=== PATIENT | female | born 1955 | race Caucasian/White ===

== ENCOUNTER 2018-03-17 06:01 | Day surgery (SDC) | payer OTHER | END 2018-03-19 08:39 | disposition home or self-care (01) | LOC: GIL 06:01 | DX: R10.9 Unspecified abdominal pain (principal); Z53.9 Procedure and treatment not carried out, unspecified reason ==

== ENCOUNTER 2018-03-17 08:18 | Inpatient (IN) | payer OTHER ==
[2018-03-17] MEDS: ONDANSETRON 4 MG INJ IV ×3 (10:08→20:59)
[2018-03-17] MEDS: KETOROLAC 30 MG INJ IV (10:08)
[2018-03-17] MEDS: SOD CHLORIDE 0.9% 1,000 ML IV ×4 (10:08→20:48)
[2018-03-17 10:30] LABS: ADD MAN DIFF? NO
[2018-03-17 10:34] LABS: ABNORMAL IP MESSAGE 1; BASOPHIL # 0.1 10^3/ul (0.0-0.1); BASOPHILS % 0.4 % (0.0-2.0); EOSINOPHILS # 0.2 10^3/ul (0.0-0.5); EOSINOPHILS % 1.3 % (0.0-7.0); HEMATOCRIT 39.2 % (37.0-47.0); HEMOGLOBIN 12.1 g/dl (12.0-16.0); LYMPHOCYTES # 1.2 10^3/ul (0.8-2.9); LYMPHOCYTES % 9.9 % (15.0-51.0); MEAN CORPUSCULAR HEMOGLOBIN 30.6 pg (29.0-33.0); MEAN CORPUSCULAR HGB CONC 30.9 g/dl (32.0-37.0); MEAN PLATELET VOLUME 12.7 fl (7.4-10.4); MONOCYTES % 8.3 % (0.0-11.0); NEUTROPHIL # 9.3 10^3/ul (1.6-7.5); NEUTROPHILS % 79.7 % (39.0-77.0); PLATELET COUNT 318 10^3/UL (140-415); RED BLOOD COUNT 3.96 10^6/ul (4.20-5.40); RED CELL DISTRIBUTION WIDTH 14.7 % (11.5-14.5)
[2018-03-17 10:34] LABS: WHITE BLOOD COUNT 11.7 10^3/ul (4.8-10.8)
[2018-03-17 10:36] LABS: POSITIVE DIFF @See below
[2018-03-17 10:52] LABS: ADD UMIC YES; ALANINE AMINOTRANSFERASE 29 IU/L (13-69); ALBUMIN 4.1 g/dl (3.3-4.9); ALBUMIN/GLOBULIN RATIO 0.97; ALKALINE PHOSPHATASE 285 IU/L (42-121); ANION GAP 17 (8-16); ASPARTATE AMINO TRANSFERASE 68 IU/L (15-46); BILIRUBIN,INDIRECT 0.2 mg/dl (0-1.1); BILIRUBIN,TOTAL 0.2 mg/dl (0.2-1.3); BLOOD UREA NITROGEN 11 mg/dl (7-20); CALCIUM 9.7 mg/dl (8.4-10.2); CARBON DIOXIDE 30 mmol/L (21-31); CHLORIDE 100 mmol/L (97-110); CREATININE 0.95 mg/dl (0.44-1.00); GLUCOSE 92 mg/dl (70-220); LIPASE 47 U/L (23-300); POTASSIUM 4.2 mmol/L (3.5-5.1); SODIUM 143 mmol/L (135-144); TOTAL PROTEIN 8.3 g/dl (6.1-8.1); UR ASCORBIC ACID NEGATIVE (NEGATIVE); UR BACTERIA FEW /HPF (NONE SEEN); UR BILIRUBIN (Dip) NEGATIVE (NEGATIVE); UR BLOOD (Dip) NEGATIVE (NEGATIVE); UR CLARITY CLOUDY (CLEAR); UR COLOR YELLOW (YELLOW); UR GLUCOSE (Dip) NEGATIVE (NEGATIVE); UR KETONES (Dip) TRACE mg/dL (NEGATIVE); UR LEUKOCYTE ESTERASE (Dip) 2+ Leu/ul (NEGATIVE); UR NITRITE (Dip) NEGATIVE (NEGATIVE); UR RBC 1 /HPF (0-5); UR SPECIFIC GRAVITY (Dip) 1.021 (1.003-1.030); UR SQUAMOUS EPITHELIAL CELL MODERATE /HPF (FEW); UR TOTAL PROTEIN (Dip) 1+ mg/dl (NEGATIVE); UR UROBILINOGEN (Dip) NEGATIVE (NEGATIVE); UR WBC 21 /HPF (0-5)
[2018-03-17] MEDS: MAGNESIUM CITRATE 300 ML BTL PO (11:28)
[2018-03-17] MEDS: CEPHALEXIN 500 MG CAP PO (11:28)
[2018-03-17] MEDS ORDERED: MAGNESIUM HYDROXIDE 30ML CUP PO (13:00)
[2018-03-17] MEDS ORDERED: NACL 0.9% 3 ML SYG IV (13:00)
[2018-03-17] MEDS ORDERED: NA PHOSPHATE/BIPHOS 133 ML ENEMA PR (13:00)
[2018-03-17 13:29] LABS: HAAIG REFLEX REFLEX FILED
[2018-03-17] MEDS ORDERED: hydrALAzine 20 MG INJ IV (14:00)
[2018-03-17 14:08] LABS: HEPATITIS B SURFACE ANTIGEN NEGATIVE (NEGATIVE)
[2018-03-17 14:25] LABS: HEPATITIS B CORE ANTIBODY REACTIVE (NEGATIVE); HEPATITIS C VIRAL ANTIBODY NEGATIVE (NEGATIVE)
[2018-03-17 14:29] LABS: HIV 1&2 ANTIBODY REACTIVE (NEGATIVE)
[2018-03-17] MEDS: NA PHOSPHATE/BIPHOS 133 ML ENEMA PR (14:30)
[2018-03-17] MEDS: LACTULOSE 30ML CUP PO (14:30)
[2018-03-17] MEDS: CEFTRIAXONE 1 GM/50 ML (PMX) 50 ML IVPB (14:30)
[2018-03-17] MEDS: DOCUSATE SODIUM 100 MG CAP PO (14:33)
[2018-03-17 14:44] LABS: LACTATE DEHYDROGENASE 2686 IU/L (313-618)
[2018-03-17] MEDS: SOD CHLORIDE 0.9% 100 ML (16:43)
[2018-03-17] MEDS: IOHEXOL 300MG/ML 150 ML BTL (16:43)
[2018-03-17] MEDS: PEG/ELECTROLYTES 4L BTL PO (16:58)
[2018-03-17] MEDS ORDERED: POTASSIUM CHLORIDE 10 MEQ in SOD CHLORIDE 0.9% 50 ML IV (17:00)
[2018-03-17] MEDS: ACETAMINOPHEN 325 MG TAB PO (20:47)
[2018-03-17] MEDS: SENNA TAB PO (20:47)
[2018-03-17] MEDS: FAMOTIDINE 20 MG INJ IV (20:47)
[2018-03-17] MEDS: ATORVASTATIN 40 MG TAB PO (20:47)
[2018-03-18] MEDS: DOCUSATE SODIUM 100 MG CAP PO ×2 (01:00→13:00)
[2018-03-18] MEDS: METOCLOPRAMIDE 10 MG INJ IV (02:06)
[2018-03-18] MEDS: LACTULOSE ENEMA 1,000 ML BTL PR (03:00)
[2018-03-18 03:27] LABS: TROPONIN-I < 0.012 ng/ml (0.00-0.12)
[2018-03-18 03:53] LABS: AMMONIA 54 umol/l (9-30)
[2018-03-18] MEDS: ACETAMINOPHEN 1000MG/100ML IV 100 ML IVPB ×3 (04:00→10:00)
[2018-03-18] MEDS: LORAZEPAM 2 MG INJ IM (05:00)
[2018-03-18 05:08] LABS: WHITE BLOOD COUNT 16.6 10^3/ul (4.8-10.8)
[2018-03-18 05:08] LABS: ABNORMAL IP MESSAGE 1; HEMATOCRIT 42.3 % (37.0-47.0); MEAN CORPUSCULAR HGB CONC 30.7 g/dl (32.0-37.0); MEAN PLATELET VOLUME 11.3 fl (7.4-10.4); PLATELET COUNT 577 10^3/UL (140-415); RED BLOOD COUNT 4.19 10^6/ul (4.20-5.40); RED CELL DISTRIBUTION WIDTH 15.2 % (11.5-14.5)
[2018-03-18 05:21] LABS: ADD MAN DIFF? YES; POSITIVE DIFF @See below
[2018-03-18] MEDS: ONDANSETRON INJ 8 MG in DEXTROSE 5% 50 ML IV ×2 (05:21→06:16)
[2018-03-18 05:34] LABS: HEMOGLOBIN A1C 5.3 % (0-5.9)
[2018-03-18 05:38] LABS: POTASSIUM 3.3 mmol/L (3.5-5.1)
[2018-03-18] MEDS: ONDANSETRON 4 MG INJ IV (05:44)
[2018-03-18 05:47] LABS: ALANINE AMINOTRANSFERASE 37 IU/L (13-69); ALBUMIN 2.7 g/dl (3.3-4.9); ALBUMIN/GLOBULIN RATIO 0.87; ALKALINE PHOSPHATASE 514 IU/L (42-121); ANION GAP 21 (8-16); ASPARTATE AMINO TRANSFERASE 93 IU/L (15-46); BILIRUBIN,TOTAL 0.3 mg/dl (0.2-1.3); BLOOD UREA NITROGEN 21 mg/dl (7-20); CALCIUM 8.7 mg/dl (8.4-10.2); CARBON DIOXIDE 20 mmol/L (21-31); CHLORIDE 107 mmol/L (97-110); CHOLESTEROL 98 mg/dl (100-200); CREATININE 1.07 mg/dl (0.44-1.00); GLUCOSE 190 mg/dl (70-220); HDL CHOLESTEROL 24 mg/dl (35-98); LDL CHOLESTEROL,CALCULATED 53 mg/dl; PHOSPHORUS 2.8 mg/dl (2.5-4.9); POTASSIUM 3.7 mmol/L (3.5-5.1); SODIUM 144 mmol/L (135-144); TOTAL PROTEIN 5.8 g/dl (6.1-8.1); TRIGLYCERIDES 103 mg/dl (0-149)
[2018-03-18] MEDS: SOD CHLORIDE 0.9% 1,000 ML IV ×4 (05:49→16:51)
[2018-03-18 05:58] LABS: MAGNESIUM 5.6 mg/dl (1.7-2.5)
[2018-03-18] MEDS: LEVOTHYROXINE 50 MCG TAB PO (06:00)
[2018-03-18] MEDS ORDERED: POTASSIUM CHLORIDE 10 MEQ in SOD CHLORIDE 0.9% 50 ML IV (06:00)
[2018-03-18] MEDS ORDERED: LEVOFLOXACIN 750MG/D5W (PMX) 150 ML IVPB (06:30)
[2018-03-18] MEDS ORDERED: VANCOMYCIN IV PER PHARMACY XX (06:30)
[2018-03-18] MEDS: VASOPRESSIN 60 UNIT in DEXTROSE 5% 57 ML IV (07:00)
[2018-03-18 07:35] LABS: LACTIC ACID 11.3 mmol/L (0.5-2.0)
[2018-03-18 07:47] LABS: TROPONIN-I < 0.012 ng/ml (0.00-0.12)
[2018-03-18 08:00] LABS: ANISOCYTOSIS 1+ (0-0); BAND NEUTROPHILS #M 5.1 10^3/ul (0.0-0.6); BAND NEUTROPHILS % (M) 31 % (0-4); GIANT THROMBO% (M) 2 % (0-0); LYMPHOCYTES #M 0.8 10^3/ul (0.8-2.9); LYMPHOCYTES % (M) 5 % (15-51); METAMYELOCYTES #M 0.1 10^3/ul (0.0-0.0); METAMYELOCYTES %M 1 % (0-0); MONOCYTE #M 1.1 10^3/ul (0.3-0.9); MONOCYTES % (M) 7 % (0-11); PLATELET ESTIMATE INCREASED; POIKILOCYTOSIS 3+ (0-0); POLYCHROMASIA 3+ (0-0); REACTIVE LYMPHOCYTES #M 0.4 10^3/ul (0.0-0.0); REACTIVE LYMPHOCYTES% (M) 3 % (0-0); SEG NEUT #M 9.6 10^3/ul (1.6-7.5); SEGMENTED NEUTROPHILS (M) % 53 % (39-77)
[2018-03-18] MEDS ORDERED: POTASSIUM CHLORIDE 50 ML IVPB ×2 (08:00→10:00)
[2018-03-18] MEDS: ALBUMIN HUMAN 25% 100 ML IV ×3 (08:36→18:37)
[2018-03-18] MEDS ORDERED: PATIENT'S OWN MEDICATION PO (09:00)
[2018-03-18] MEDS ORDERED: NON-FORMULARY/PATIENT OWN MED (Abacavir/Dolutegravir/Lamivudi (Triumeq Tablet) 1 EACH) PO (09:00)
[2018-03-18] MEDS ORDERED: CEFOTAXIME 2 GM/50 ML (PMX) 50 ML IVPB (09:00)
[2018-03-18] MEDS: DOLUTEGRAVIR SODIUM 50 MG TABLET PO (09:00)
[2018-03-18] MEDS: FAMOTIDINE 20 MG INJ IV ×2 (10:02→20:40)
[2018-03-18] MEDS: LACTULOSE 30ML CUP PO (10:03)
[2018-03-18] MEDS: SENNA TAB PO ×2 (10:03→20:39)
[2018-03-18] MEDS: ABACAVIR/LAMIVUDINE TAB PO (10:03)
[2018-03-18] MEDS: metroNIDAZOLE 500 MG/NS (PMX) 100 ML IVPB ×3 (10:04→22:17)
[2018-03-18 10:15] LABS: AADO2 Arterial 171.1 mmHg (7.0-24.0); Allen Test ACCEPTAB; Arterial Base Excess -9.2 mmol/L (-3.0-3); Arterial Blood Gas Oxygen Sat 87.2 mmHG (95.0-98.0); Arterial Fraction of Oxyhgb 86.2 % (93.0-99.0); Arterial HCO3 17.5 mmol/L (22.0-26.0); Arterial MetHb 0.1 % (0.0-1.5); Arterial Total Hemglobin 11.5 g/dl (12.0-18.0); Arterial pCO2 40.7 mmhg (35-45); MODE NASAL CANNULA; Site Right Radial
[2018-03-18] MEDS ORDERED: NA BICARBONATE 8.4% 50 ML SYG (10:49)
[2018-03-18] MEDS: NA BICARBONATE 8.4% 50 ML SYG IV ×2 (11:14→11:19)
[2018-03-18 11:57] LABS: CANCER ANTIGEN 125 31.8 U/ml (0.0-35.0)
[2018-03-18 12:50] LABS: ADD UMIC NO; UR ASCORBIC ACID NEGATIVE (NEGATIVE); UR BILIRUBIN (Dip) 1+ mg/dL (NEGATIVE); UR BLOOD (Dip) NEGATIVE (NEGATIVE); UR CLARITY CLEAR (CLEAR); UR COLOR AMBER (YELLOW); UR GLUCOSE (Dip) NEGATIVE (NEGATIVE); UR KETONES (Dip) NEGATIVE (NEGATIVE); UR LEUKOCYTE ESTERASE (Dip) NEGATIVE Leu/ul (NEGATIVE); UR NITRITE (Dip) NEGATIVE (NEGATIVE); UR SPECIFIC GRAVITY (Dip) 1.031 (1.003-1.030); UR TOTAL PROTEIN (Dip) NEGATIVE (NEGATIVE); UR UROBILINOGEN (Dip) 2+ mg/dL (NEGATIVE)
[2018-03-18 13:13] LABS: CREATININE,URINE RANDOM 39.89 mg/dl (20-320)
[2018-03-18 13:17] LABS: LACTIC ACID 7.2 mmol/L (0.5-2.0)
[2018-03-18 13:17] LABS: SODIUM,URINE RANDOM 47 mmol/L (30-90)
[2018-03-18] MEDS: SODIUM BICARBONATE (IV ADD) 100 MEQ in DEXTROSE 5% 1,000 ML IV (13:19)
[2018-03-18] MEDS: MEROPENEM 1 GM/50ML(PMX) 50 ML IVPB ×2 (13:32→20:37)
[2018-03-18 15:43] LABS: URIC ACID 5.4 mg/dl (3.1-7.9)
[2018-03-18] MEDS: VANCOMYCIN 750 MG in DEXTROSE 5% 150 ML IVPB (16:12)
[2018-03-18] MEDS: morphine 2 MG INJ IV (16:40)
[2018-03-18 16:50] LABS: ANION GAP 22 (8-16); BLOOD UREA NITROGEN 27 mg/dl (7-20); CALCIUM 7.5 mg/dl (8.4-10.2); CARBON DIOXIDE 23 mmol/L (21-31); CHLORIDE 110 mmol/L (97-110); CREATININE 1.47 mg/dl (0.44-1.00); GLUCOSE 130 mg/dl (70-220); POTASSIUM 3.6 mmol/L (3.5-5.1); SODIUM 151 mmol/L (135-144)
[2018-03-18 16:58] LABS: MAGNESIUM 5.4 mg/dl (1.7-2.5)
[2018-03-18] MEDS: FUROSEMIDE 40 MG INJ IV (17:07)
[2018-03-18] MEDS ORDERED: PHENYLephrine 20MG IN 250 ML 250 ML (18:10)
[2018-03-18] MEDS ORDERED: PHENYLephrine 20MG IN 250 ML 250 ML IV (18:30)
[2018-03-18] MEDS ORDERED: ALBUMIN HUMAN 25% 100 ML (18:34)
[2018-03-18 18:51] LABS: AADO2 Arterial 594.1 mmHg (7.0-24.0); Allen Test ACCEPTAB; Arterial Base Excess -2.8 mmol/L (-3.0-3); Arterial Fraction of Oxyhgb 90.8 % (93.0-99.0); Arterial HCO3 23.9 mmol/L (22.0-26.0); Arterial MetHb 0.3 % (0.0-1.5); Arterial Total Hemglobin 10.9 g/dl (12.0-18.0); Blood Gas Low PEEP Setting 0 cmH2O; MODE VENT - AC; Site Right Brachial
[2018-03-18] MEDS ORDERED: FENTAnyl (DRIP) 1000 mcg/100mL 100 ML IV (19:00)
[2018-03-18 19:18] LABS: LACTIC ACID 5.8 mmol/L (0.5-2.0)
[2018-03-18] MEDS: POTASSIUM CHLORIDE 10 MEQ in SOD CHLORIDE 0.9% 100 ML IV (20:39)
[2018-03-18] MEDS: ATORVASTATIN 40 MG TAB PO (20:39)
[2018-03-18 22:03] LABS: AADO2 Arterial 602.4 mmHg (7.0-24.0); Arterial Base Excess -0.3 mmol/L (-3.0-3); Arterial Blood Gas Oxygen Sat 92.2 mmHG (95.0-98.0); Arterial HCO3 25.3 mmol/L (22.0-26.0); Arterial MetHb 0.3 % (0.0-1.5); Arterial Total Hemglobin 11.1 g/dl (12.0-18.0); Arterial pCO2 45.1 mmhg (35-45); Blood Gas Low PEEP Setting 0 cmH2O; MODE VENT - AC; Site Right Brachial
[2018-03-18] MEDS: DOCUSATE SODIUM 10 MG/ML (10ML CUP) PO (22:17)
[2018-03-19 02:02] LABS: LACTIC ACID 4.3 mmol/L (0.5-2.0)
[2018-03-19 02:13] LABS: ANION GAP 17 (8-16); BLOOD UREA NITROGEN 34 mg/dl (7-20); CALCIUM 6.6 mg/dl (8.4-10.2); CARBON DIOXIDE 28 mmol/L (21-31); CHLORIDE 100 mmol/L (97-110); GLUCOSE 177 mg/dl (70-220); POTASSIUM 4.1 mmol/L (3.5-5.1); SODIUM 141 mmol/L (135-144)
[2018-03-19] MEDS: SODIUM BICARBONATE (IV ADD) 100 MEQ in DEXTROSE 5% 1,000 ML IV (03:07)
[2018-03-19] MEDS: SOD CHLORIDE 0.9% 500 ML IV (03:37)
[2018-03-19] MEDS: metroNIDAZOLE 500 MG/NS (PMX) 100 ML IVPB ×3 (05:41→22:00)
[2018-03-19] MEDS: LEVOTHYROXINE 50 MCG TAB PO (05:41)
[2018-03-19 05:58] LABS: WHITE BLOOD COUNT 5.8 10^3/ul (4.8-10.8)
[2018-03-19 05:58] LABS: ABNORMAL IP MESSAGE 1; HEMATOCRIT 33.3 % (37.0-47.0); HEMOGLOBIN 10.5 g/dl (12.0-16.0); MEAN CORPUSCULAR HEMOGLOBIN 31.1 pg (29.0-33.0); MEAN CORPUSCULAR HGB CONC 31.5 g/dl (32.0-37.0); MEAN CORPUSCULAR VOLUME 98.5 fl (82.0-101.0); MEAN PLATELET VOLUME 11.1 fl (7.4-10.4); NUCLEATED RED BLOOD CELLS% 0.3 /100WBC (0.0-0.0); PLATELET COUNT 430 10^3/UL (140-415); RED BLOOD COUNT 3.38 10^6/ul (4.20-5.40)
[2018-03-19 05:59] LABS: POSITIVE DIFF @See below
[2018-03-19 06:00] LABS: ADD MAN DIFF? YES
[2018-03-19 06:19] LABS: ANION GAP 19 (8-16); BLOOD UREA NITROGEN 38 mg/dl (7-20); CALCIUM 6.3 mg/dl (8.4-10.2); CARBON DIOXIDE 27 mmol/L (21-31); CHLORIDE 101 mmol/L (97-110); CREATININE 2.08 mg/dl (0.44-1.00); GLUCOSE 148 mg/dl (70-220); MAGNESIUM 4.7 mg/dl (1.7-2.5); PHOSPHORUS 5.3 mg/dl (2.5-4.9); POTASSIUM 4.1 mmol/L (3.5-5.1); SODIUM 143 mmol/L (135-144)
[2018-03-19] MEDS: VASOPRESSIN 60 UNIT in DEXTROSE 5% 57 ML IV ×2 (07:00→19:32)
[2018-03-19 08:00] LABS: AADO2 Arterial 619.7 mmHg (7.0-24.0); Allen Test ACCEPTAB; Arterial Base Excess -1.9 mmol/L (-3.0-3); Arterial Blood Gas Oxygen Sat 85.2 mmHG (95.0-98.0); Arterial COHb 0.9 % (0.0-3.0); Arterial Fraction of Oxyhgb 84.2 % (93.0-99.0); Arterial HCO3 23.1 mmol/L (22.0-26.0); Arterial MetHb 0.3 % (0.0-1.5); Arterial Total Hemglobin 10.9 g/dl (12.0-18.0); Arterial pCO2 40.4 mmhg (35-45); MODE VENT - AC; Site Right Radial
[2018-03-19] MEDS ORDERED: VANCOMYCIN 500MG/NS (PMX) 100 ML IVPB (08:00)
[2018-03-19 08:43] LABS: ANISOCYTOSIS 1+ (0-0); BAND NEUTROPHILS #M 2.8 10^3/ul (0.0-0.6); BAND NEUTROPHILS % (M) 49 % (0-4); BURR CELLS 2+ (0-0); ERYTHROBLAST% (NRBC) (M) 2 % (0-0); GIANT THROMBO% (M) 8 % (0-0); LYMPHOCYTES #M 0.5 10^3/ul (0.8-2.9); LYMPHOCYTES % (M) 10 % (15-51); METAMYELOCYTES #M 0.3 10^3/ul (0.0-0.0); METAMYELOCYTES %M 6 % (0-0); MONOCYTE #M 0.6 10^3/ul (0.3-0.9); MONOCYTES % (M) 11 % (0-11); MYELOCYTES #M 0.1 10^3/ul (0.0-0.0); MYELOCYTES % (M) 3 % (0-0); PLATELET ESTIMATE INCREASED; POIKILOCYTOSIS 1+ (0-0); POLYCHROMASIA 1+ (0-0); SEG NEUT #M 1.4 10^3/ul (1.6-7.5); SEGMENTED NEUTROPHILS (M) % 21 % (39-77); SMUDGE%M 4 % (0-0)
[2018-03-19] MEDS: LACTULOSE 30ML CUP NGT ×8 (09:00→22:08)
[2018-03-19] MEDS: LACTULOSE 30ML CUP PO (09:00)
[2018-03-19] MEDS: MINERAL OIL 133 ML ENEMA PR (09:30)
[2018-03-19] MEDS: DOLUTEGRAVIR SODIUM 50 MG TABLET PO (09:42)
[2018-03-19] MEDS: SOD CHLORIDE 0.9% 1,000 ML IV ×2 (09:42→22:08)
[2018-03-19] MEDS: DOCUSATE SODIUM 10 MG/ML (10ML CUP) PO ×2 (09:42→20:41)
[2018-03-19] MEDS: ABACAVIR/LAMIVUDINE TAB PO (09:42)
[2018-03-19] MEDS: MEROPENEM 500MG/50 ML (PMX) 50 ML IVPB ×2 (09:42→20:35)
[2018-03-19] MEDS: ALLOPURINOL 100 MG TAB PO (09:43)
[2018-03-19] MEDS: SENNA TAB PO ×2 (09:43→20:42)
[2018-03-19 12:08] LABS: LYMPHOCYTE - % CD4 (HELPER) 46 % (30-61); LYMPHOCYTE - %CD8 (SUPPRESSOR) 16 % (12-42); LYMPHOCYTE - ABSOLUTE 1196 cells/uL (850-3900); LYMPHOCYTE - ABSOLUTE CD4 546 cells/uL (490-1740); LYMPHOCYTE - ABSOLUTE CD8 194 cells/uL (180-1170); LYMPHOCYTE - CD4/CD8 RATIO 2.81 (0.86-5.00)
[2018-03-19] MEDS ORDERED: ALBUMIN HUMAN 25% 200 ML (13:17)
[2018-03-19] MEDS: ALBUMIN HUMAN 25% 100 ML IV ×2 (13:30→21:14)
[2018-03-19] MEDS ORDERED: PHENYLephrine 20MG IN 250 ML 250 ML ×2 (13:51→19:42)
[2018-03-19] MEDS ORDERED: DOBUTamine/D5W 2 MG/ML DRIP 250 ML IV (14:30)
[2018-03-19] MEDS: PHENYLephrine 40 MG in DEXTROSE 5% 496 ML IV ×3 (15:25→20:40)
[2018-03-19 15:51] LABS: CREATININE, RANDOM URINE 47 mg/dL (20-320); MICROALBUMIN 2.3 mg/dL; MICROALBUMIN/CREATININE RATIO 49 (<30)
[2018-03-19 17:26] LABS: LYMPHOCYTE - % CD4 (HELPER) 31 % (30-61); LYMPHOCYTE - %CD8 (SUPPRESSOR) 11 % (12-42); LYMPHOCYTE - ABSOLUTE 590 cells/uL (850-3900); LYMPHOCYTE - ABSOLUTE CD4 181 cells/uL (490-1740); LYMPHOCYTE - ABSOLUTE CD8 63 cells/uL (180-1170); LYMPHOCYTE - CD4/CD8 RATIO 2.88 (0.86-5.00)
[2018-03-19] MEDS ORDERED: PHENYLephrine 20MG IN 250 ML 250 ML IV (20:00)
[2018-03-19] MEDS: PHENYLephrine 20MG IN 250 ML 250 ML IV (20:24)
[2018-03-19] MEDS: FAMOTIDINE 20 MG INJ IV (20:35)
[2018-03-19] MEDS: ATORVASTATIN 40 MG TAB PO (20:42)
[2018-03-19] MEDS: DOBUTamine/D5W 2 MG/ML DRIP 250 ML IV (20:54)
[2018-03-19] MEDS ORDERED: SODIUM BICARBONATE (IV ADD) 150 MEQ in DEXTROSE 5% 850 ML IV (22:30)
[2018-03-19] MEDS ORDERED: morphine 2 MG INJ IV (22:30)
[2018-03-19] MEDS: morphine 2 MG INJ IV (22:38)
== END 2018-03-20 03:19 | disposition expired | DRG 974 ==
LOC: FTE 08:18 → MS3 03-18 02:35 → TEL 03-18 05:29 → ICU 03-18 07:54 → MS3 12:14
PROVIDERS: Internal Medicine
PROC: 5A1945Z Respiratory Ventilation, 24-96 Consecutive Hours (ICD-10-PCS; principal; 2018-03-18)
PROC: 0BH17EZ Insertion of Endotracheal Airway into Trachea, Via Natural or Artificial Opening (ICD-10-PCS; 2018-03-18)
PROC: 06HM33Z Insertion of Infusion Device into Right Femoral Vein, Percutaneous Approach (ICD-10-PCS; 2018-03-18)
PROC: 5A12012 Performance of Cardiac Output, Single, Manual (ICD-10-PCS; 2018-03-19)
DX: A41.9 Sepsis, unspecified organism (principal); R65.21 Severe sepsis with septic shock; B20 Human immunodeficiency virus [HIV] disease; N17.0 Acute kidney failure with tubular necrosis; G92 Toxic encephalopathy; J96.01 Acute respiratory failure with hypoxia; E43 Unspecified severe protein-calorie malnutrition; N39.0 Urinary tract infection, site not specified; C18.9 Malignant neoplasm of colon, unspecified; C78.7 Secondary malignant neoplasm of liver and intrahepatic bile duct; Z68.1 Body mass index [BMI] 19.9 or less, adult; E87.2 Acidosis; F11.20 Opioid dependence, uncomplicated; E03.9 Hypothyroidism, unspecified; K59.00 Constipation, unspecified; E78.5 Hyperlipidemia, unspecified; E83.89 Other disorders of mineral metabolism; E83.42 Hypomagnesemia; D64.9 Anemia, unspecified; K52.9 Noninfective gastroenteritis and colitis, unspecified; R62.7 Adult failure to thrive; I46.9 Cardiac arrest, cause unspecified; Z66 Do not resuscitate
CPT/HCPCS: 31500; 36415; 36600; 71045; 74176; 74177; 80048; 80053; 80061; 81001; 81003; 82043; 82105; 82140; 82378; 82803; 82962; 83036; 83605; 83615; 83690; 83735; 84100; 84132; 84155; 84300; 84443; 84484; 84560; 85025; 86301; 86304; 86360; 86701; 86703; 86704; 86709; 86803; 87040; 87070; 87086; 87340; 92950; 93005; 94002; 94003; 94770; 96374; 96375; 99285-25; J1250